=== PATIENT | male | born 1985 | race Caucasian/White ===

== ENCOUNTER 2017-10-28 10:31 | Inpatient (IN) | payer MEDICAID ==
[~2017-10-28] VITALS: Ht 170.2 cm; Wt 80.3 kg
[2017-10-28] MEDS ORDERED: LORazepam 2 MG/ML VIAL IM ONE (10:45)
[2017-10-28] MEDS ORDERED: DiphenhydrAMINE HCL 50 MG/ML VIAL IM ONE (10:45)
[2017-10-28] MEDS ORDERED: HALOPERIDOL LACTATE 5 MG/ML VIAL IM ONE (10:45)
[2017-10-28 11:30] LABS: BASOPHILS % (AUTO) 0.3 % (0.0-2.0); EOSINOPHILS % (AUTO) 0.3 % (1.0-6.0); HEMATOCRIT 38.6 % (41-53); HEMOGLOBIN 13.8 g/dL (13.5-17.5); LYMPHOCYTES # (AUTO) 1.7 K/uL (1.0-4.8); LYMPHOCYTES % (AUTO) 11.9 % (22.0-44.0); MEAN CORPUSCULAR HEMOGLOBIN 30.7 pg (26.0-34.0); MEAN CORPUSCULAR HGB CONC 35.8 G/dL (31.0-37.0); MEAN CORPUSCULAR VOLUME 86 fL (80-100); MONOCYTES # (AUTO) 0.8 K/uL (0.1-1.0); MONOCYTES % (AUTO) 5.3 % (2.0-9.0); NEUTROPHILS % (AUTO) 82.2 % (40.0-70.0); PLATELET COUNT (AUTO) 267 K/uL (150-450); RED CELL DISTRIBUTION WIDTH 13.2 % (11.5-14.5)
[2017-10-28 11:35] LABS: ANION GAP 12 mmol/L (8-16); CALCIUM, TOTAL 8.5 mg/dL (8.8-10.5); CARBON DIOXIDE 21 mmol/L (22-29); CHLORIDE 102 mmol/L (98-107); CREATININE 1.22 mg/dL (0.60-1.30); GLOMERULAR FILTR. RATE CALC > 60 mL/min (>60); GLUCOSE,RANDOM 110 mg/dL (70-110); POTASSIUM 3.1 mmol/L (3.5-5.1); SODIUM SERUM 135 mmol/L (136-145); UREA NITROGEN, BLOOD 13 mg/dL (7-18)
[2017-10-28 11:41] LABS: ALANINE AMINOTRANSFERASE 39 U/L (12-78); ALBUMIN 3.8 g/dL (3.4-5.0); ALKALINE PHOSPHATASE 56 U/L (46-116); ASPARTATE AMINOTRANSFERASE 22 U/L (15-37); BILIRUBIN,TOTAL 1.1 mg/dL (0.1-1.0); TOTAL PROTEIN, SERUM 7.4 g/dL (6.4-8.2)
[2017-10-28] MEDS ORDERED: POTASSIUM CHLORIDE 20 MEQ ER TABLET PO ONE (12:15)
[2017-10-28] MEDS ORDERED: ZOLPIDEM TARTRATE 10 MG TABLET PO PRN (14:00)
[2017-10-28 17:39] VITALS: BP 150/89
[2017-10-29 06:32] VITALS: BP 117/69
[2017-10-29 08:32] VITALS: BP 130/61
[2017-10-29 16:00] VITALS: BP 127/73
[2017-10-29] MEDS ORDERED: PETROLATUM,WHITE 71 GM JELLY TP PRN (20:30)
[2017-10-29] MEDS ORDERED: ONDANSETRON HCL 4 MG TABLET PO PRN (20:30)
[2017-10-29] MEDS ORDERED: LOPERAMIDE HCL 2 MG CAPSULE PO PRN (20:30)
[2017-10-29] MEDS ORDERED: DOCUSATE SODIUM 100 MG CAPSULE PO PRN (20:30)
[2017-10-29] MEDS ORDERED: ALBUTEROL SULFATE HFA 90 MCG/PUFF 8 GM INHALER IH PRN (20:30)
[2017-10-29] MEDS ORDERED: CloNIDine HCL 0.1 MG TABLET PO PRN (20:30)
[2017-10-29] MEDS ORDERED: IBUPROFEN 600 MG TABLET PO PRN (20:30)
[2017-10-29] MEDS ORDERED: BACITRACIN 28.4 GM OINTMENT TP PRN (20:30)
[2017-10-29] MEDS ORDERED: MAGNESIUM HYDROXIDE SUSPENSION 30 ML UDCUP PO PRN (20:30)
[2017-10-29] MEDS ORDERED: ACETAMINOPHEN 325 MG TABLET PO PRN (20:30)
[2017-10-29] MEDS ORDERED: MAG HYDROX/AL HYDROX/SIMETH ES 30 ML SUSPENSION UDCUP PO PRN (20:30)
[2017-10-29] MEDS ORDERED: BENZOCAINE/MENTHOL LOZENGE MM PRN (20:30)
[2017-10-30 00:24] VITALS: BP 128/78
[2017-10-30 08:26] VITALS: BP 141/90
[2017-10-30 08:47] LABS: BAND NEUTROPHILS % (MANUAL) 0 % (0-5)
[2017-10-30 08:57] LABS: HEMATOCRIT 38.5 % (41-53); HEMOGLOBIN 13.8 g/dL (13.5-17.5); MEAN CORPUSCULAR HGB CONC 35.8 G/dL (31.0-37.0); MEAN CORPUSCULAR VOLUME 87 fL (80-100); PLATELET COUNT (AUTO) 267 K/uL (150-450); RED BLOOD CELL COUNT(AUTO) 4.45 MIL/uL (4.50-5.90); RED CELL DISTRIBUTION WIDTH 13.1 % (11.5-14.5)
[2017-10-30 10:01] LABS: ANION GAP 8 mmol/L (8-16); CALCIUM, TOTAL 7.9 mg/dL (8.8-10.5); CARBON DIOXIDE 26 mmol/L (22-29); CHLORIDE 107 mmol/L (98-107); CHOL/HDL RATIO 4.9 (4.2-7.3); CHOLESTEROL 146 mg/dL (131-200); CREATININE 0.94 mg/dL (0.60-1.30); GLOMERULAR FILTR. RATE CALC > 60 mL/min (>60); GLUCOSE,RANDOM 135 mg/dL (70-110); HDL CHOLESTEROL 30 mg/dL (40-60); LDL CHOL (CALC.) 84 mg/dL (0-130); PHOSPHORUS 3.4 mg/dL (2.5-4.9); POTASSIUM 3.3 mmol/L (3.5-5.1); SODIUM SERUM 141 mmol/L (136-145); THYROID STIMULATING HORMONE 1.05 uIU/mL (0.36-3.74); TRIGLYCERIDES 162 mg/dL (15-150); UREA NITROGEN, BLOOD 8 mg/dL (7-18)
[2017-10-30 11:02] LABS: EOSINOPHILS % (MANUAL) 1 % (1-6); LYMPHOCYTES % (MANUAL) 31 % (22-44); MONOCYTES % (MANUAL) 2 % (2-9); SEGMENTED NEUTROPHILS % 66 % (40-70)
[2017-10-30] MEDS: OLANZapine 5 MG TABLET PO SCH ×2 (11:37→20:57)
[2017-10-30 16:00] VITALS: BP 114/65
[2017-10-31 00:04] VITALS: BP 130/90
[2017-10-31 08:09] VITALS: BP 129/67
[2017-10-31] MEDS: OLANZapine 5 MG TABLET PO SCH ×2 (08:56→20:30)
[2017-10-31 16:00] VITALS: BP 140/88
[2017-10-31] MEDS ORDERED: POTASSIUM CHLORIDE 20 MEQ ER TABLET PO ONE (17:00)
[2017-11-01 07:31] LABS: POTASSIUM 4.3 mmol/L (3.5-5.1)
[2017-11-01 08:12] LABS: HEMOGLOBIN A1C 6.3 % (4.5-6.2)
[2017-11-01 08:13] VITALS: BP 133/69
[2017-11-01] MEDS: OLANZapine 5 MG TABLET PO SCH ×2 (09:00→20:29)
[2017-11-01] MEDS ORDERED: GLUCAGON,HUMAN RECOMBINANT 1 MG VIAL IM PRN (12:15)
[2017-11-01] MEDS ORDERED: INSULIN LISPRO 100 UNITS/ML SQ PRN (12:15)
[2017-11-01 16:16] VITALS: BP 137/88
[2017-11-01] MEDS: MetFORMIN HCL 500 MG TABLET PO SCH (17:00)
[2017-11-02 02:00] VITALS: BP 124/82
[2017-11-02] MEDS: MetFORMIN HCL 500 MG TABLET PO SCH ×2 (06:24→16:27)
[2017-11-02] MEDS: OLANZapine 5 MG TABLET PO SCH ×2 (09:00→20:12)
[2017-11-02 09:22] VITALS: BP 146/79
[2017-11-02 16:00] VITALS: BP 136/86
[2017-11-03 00:51] VITALS: BP 106/66
[2017-11-03] MEDS: MetFORMIN HCL 500 MG TABLET PO SCH ×2 (06:32→17:07)
[2017-11-03 08:26] VITALS: BP 122/68
[2017-11-03] MEDS: CHOLECALCIFEROL (VIT D3) 1,000 UNITS TABLET PO SCH (08:45)
[2017-11-03] MEDS: OLANZapine 5 MG TABLET PO SCH ×2 (08:48→21:03)
[2017-11-03 11:38] LABS: GLUCOMETER DEV NAME(LOC) BV3N5; GLUCOSE,POINT OF CARE 113 MG/DL (70-110)
[2017-11-03 16:14] VITALS: BP 123/71
[2017-11-03] MEDS: HALOPERIDOL 5 MG TABLET PO PRN (17:07)
[2017-11-03] MEDS: LORazepam 2 MG TABLET PO PRN (17:07)
[2017-11-03 17:18] LABS: GLUCOMETER DEV NAME(LOC) BV3N5; GLUCOSE,POINT OF CARE 133 MG/DL (70-110)
[2017-11-04] MEDS: MetFORMIN HCL 500 MG TABLET PO SCH ×2 (06:33→17:16)
[2017-11-04 06:42] VITALS: BP 113/72
[2017-11-04 08:43] VITALS: BP 110/67
[2017-11-04] MEDS: CHOLECALCIFEROL (VIT D3) 1,000 UNITS TABLET PO SCH (10:01)
[2017-11-04] MEDS: LORazepam 2 MG TABLET PO PRN ×2 (10:01→21:42)
[2017-11-04 16:16] VITALS: BP 120/66
[2017-11-04 17:03] LABS: GLUCOMETER DEV NAME(LOC) BV3N5; GLUCOSE,POINT OF CARE 105 MG/DL (70-110)
[2017-11-04] MEDS: HALOPERIDOL 5 MG TABLET PO PRN (21:42)
[2017-11-04] MEDS: OLANZapine 5 MG TABLET PO SCH (21:42)
[2017-11-05 06:34] LABS: GLUCOMETER DEV NAME(LOC) BV3N5; GLUCOSE,POINT OF CARE 89 MG/DL (70-110)
[2017-11-05] MEDS: MetFORMIN HCL 500 MG TABLET PO SCH ×2 (06:53→16:33)
[2017-11-05 08:08] VITALS: BP 138/68
[2017-11-05] MEDS: OLANZapine 5 MG TABLET PO SCH ×2 (09:00→20:22)
[2017-11-05] MEDS: CHOLECALCIFEROL (VIT D3) 1,000 UNITS TABLET PO SCH (09:00)
[2017-11-05 11:53] LABS: GLUCOMETER DEV NAME(LOC) BV3N5; GLUCOSE,POINT OF CARE 123 MG/DL (70-110)
[2017-11-05 16:00] VITALS: BP 127/70
[2017-11-05] MEDS: LORazepam 2 MG TABLET PO PRN (16:33)
[2017-11-05 17:08] LABS: GLUCOMETER DEV NAME(LOC) BV3N5; GLUCOSE,POINT OF CARE 173 MG/DL (70-110)
[2017-11-06 01:22] VITALS: BP 137/82
[2017-11-06] MEDS: MetFORMIN HCL 500 MG TABLET PO SCH ×2 (06:16→17:00)
[2017-11-06 08:26] VITALS: BP 125/74
[2017-11-06] MEDS: OLANZapine 5 MG TABLET PO SCH ×2 (08:51→20:26)
[2017-11-06] MEDS: CHOLECALCIFEROL (VIT D3) 1,000 UNITS TABLET PO SCH (08:51)
[2017-11-06] MEDS: LORazepam 1 MG TABLET PO PRN (11:29)
[2017-11-06] MEDS: HALOPERIDOL 5 MG TABLET PO PRN (11:29)
[2017-11-06 11:48] LABS: GLUCOMETER DEV NAME(LOC) BV3N5; GLUCOSE,POINT OF CARE 122 MG/DL (70-110)
[2017-11-06 16:00] VITALS: BP 138/90
[2017-11-07 05:23] VITALS: BP 138/89
[2017-11-07 05:25] VITALS: BP 113/69
[2017-11-07] MEDS: MetFORMIN HCL 500 MG TABLET PO SCH ×2 (06:36→16:08)
[2017-11-07 08:24] VITALS: BP 126/72
[2017-11-07] MEDS: CHOLECALCIFEROL (VIT D3) 1,000 UNITS TABLET PO SCH ×3 (08:52→09:00)
[2017-11-07] MEDS: OLANZapine 5 MG TABLET PO SCH ×3 (08:53→20:13)
[2017-11-07 11:13] LABS: GLUCOMETER DEV NAME(LOC) BV3N5; GLUCOSE,POINT OF CARE 138 MG/DL (70-110)
[2017-11-07 16:10] VITALS: BP 124/78
[2017-11-08 04:37] VITALS: BP 127/76
[2017-11-08] MEDS: MetFORMIN HCL 500 MG TABLET PO SCH ×2 (06:30→16:22)
[2017-11-08 08:17] VITALS: BP 144/79
[2017-11-08] MEDS: CHOLECALCIFEROL (VIT D3) 1,000 UNITS TABLET PO SCH (08:55)
[2017-11-08] MEDS: OLANZapine 5 MG TABLET PO SCH ×2 (08:56→21:00)
[2017-11-08 16:25] VITALS: BP 144/87
[2017-11-09 04:06] VITALS: BP 129/88
[2017-11-09] MEDS: MetFORMIN HCL 500 MG TABLET PO SCH ×2 (06:40→16:47)
[2017-11-09 09:00] VITALS: BP 141/92
[2017-11-09] MEDS: CHOLECALCIFEROL (VIT D3) 1,000 UNITS TABLET PO SCH (09:00)
[2017-11-09] MEDS: OLANZapine 5 MG TABLET PO SCH (09:00)
[2017-11-09 16:00] VITALS: BP 129/77
[2017-11-10 02:44] VITALS: BP 152/81
[2017-11-10] MEDS: MetFORMIN HCL 500 MG TABLET PO SCH ×2 (06:35→16:38)
[2017-11-10 08:15] VITALS: BP 140/84
[2017-11-10] MEDS: CHOLECALCIFEROL (VIT D3) 1,000 UNITS TABLET PO SCH (09:00)
[2017-11-10] MEDS: PALIPERIDONE 3 MG ER TABLET PO SCH (09:00)
[2017-11-10 11:50] LABS: GLUCOMETER DEV NAME(LOC) BV3N5; GLUCOSE,POINT OF CARE 164 MG/DL (70-110)
[2017-11-10 16:00] VITALS: BP 128/68
[2017-11-10] MEDS: LORazepam 1 MG TABLET PO PRN (16:38)
[2017-11-10] MEDS: HALOPERIDOL 5 MG TABLET PO PRN (16:38)
[2017-11-10 16:54] LABS: GLUCOMETER DEV NAME(LOC) BV3N5; GLUCOSE,POINT OF CARE 93 MG/DL (70-110)
[2017-11-10 21:24] LABS: GLUCOMETER DEV NAME(LOC) BV3N5; GLUCOSE,POINT OF CARE 113 MG/DL (70-110)
[2017-11-11 05:11] VITALS: BP 145/98
[2017-11-11] MEDS: MetFORMIN HCL 500 MG TABLET PO SCH (06:37)
[2017-11-11 08:22] VITALS: BP 135/66
[2017-11-11] MEDS: CHOLECALCIFEROL (VIT D3) 1,000 UNITS TABLET PO SCH (09:05)
[2017-11-11] MEDS: HALOPERIDOL 5 MG TABLET PO PRN (09:05)
[2017-11-11] MEDS: LORazepam 1 MG TABLET PO PRN (09:05)
[2017-11-11] MEDS: PALIPERIDONE 3 MG ER TABLET PO SCH (09:05)
[2017-11-11 11:41] LABS: GLUCOMETER DEV NAME(LOC) BV3N5; GLUCOSE,POINT OF CARE 89 MG/DL (70-110)
[2017-11-11] MEDS ORDERED: METF500T6 PO (14:45)
[2017-11-11] MEDS ORDERED: VITAD1000 PO (14:45)
[2017-11-11] MEDS ORDERED: PALI3 PO (14:45)
== END 2017-11-11 15:55 | disposition home or self-care (01) | DRG 751 ==
LOC: EMS 10:32 → B3A 15:19
PROVIDERS: ADMIT Psychiatry & Neurology Psychiatry; ATTEND Psychiatry & Neurology Psychiatry
DX: F29 Unspecified psychosis not due to a substance or known physiological condition (principal); E87.1 Hypo-osmolality and hyponatremia; E83.51 Hypocalcemia; Z91.14 Patient's other noncompliance with medication regimen; R73.9 Hyperglycemia, unspecified; D72.829 Elevated white blood cell count, unspecified; E87.6 Hypokalemia; F41.9 Anxiety disorder, unspecified; G47.00 Insomnia, unspecified; Z79.899 Other long term (current) drug therapy
CPT/HCPCS: 82306; 83036; 83735; 84100; 84132; 84443; 85007; 96372; 99285; G0480; J1200; J1630; J2060

== ENCOUNTER 2018-02-22 17:04 | Inpatient (IN) | payer MEDICAID ==
[~2018-02-22] VITALS: Ht 170.2 cm; Wt 87.7 kg
[~2018-02-22 17:04] MED LIST: METF-960 PO; PALI3 PO; VITAD1000 PO
[2018-02-22] MEDS ORDERED: HALOPERIDOL 5 MG TABLET PO ONE (20:30)
[2018-02-23 00:14] LABS: AMPHET/METH SCREEN,URINE NEGATIVE (NEGATIVE); BARBITURATE SCREEN, URINE NEGATIVE (NEGATIVE); BENZODIAZEPINES SCREEN,URINE NEGATIVE (NEGATIVE); CANNABINOID SCREEN,URINE NEGATIVE (NEGATIVE); COCAINE SCREEN,URINE NEGATIVE (NEGATIVE); METHADONE SCREEN, URINE NEGATIVE (NEGATIVE); OPIATE SCREEN,URINE NEGATIVE (NEGATIVE)
[2018-02-23 00:19] LABS: PHENCYCLIDINE SCREEN,URINE NEGATIVE (NEGATIVE)
[2018-02-23 02:33] LABS: BASOPHILS % (AUTO) 0.7 % (0.0-2.0); EOSINOPHILS % (AUTO) 0.7 % (1.0-6.0); HEMATOCRIT 39.7 % (41-53); HEMOGLOBIN 13.9 g/dL (13.5-17.5); LYMPHOCYTES # (AUTO) 3.2 K/uL (1.0-4.8); MEAN CORPUSCULAR HEMOGLOBIN 30.2 pg (26.0-34.0); MEAN CORPUSCULAR VOLUME 86 fL (80-100); MONOCYTES # (AUTO) 0.9 K/uL (0.1-1.0); MONOCYTES % (AUTO) 8.1 % (2.0-9.0); NEUTROPHILS # (AUTO) 6.4 K/uL (1.8-7.7); NEUTROPHILS % (AUTO) 60.5 % (40.0-70.0); PLATELET COUNT (AUTO) 296 K/uL (150-450); RED BLOOD CELL COUNT(AUTO) 4.61 MIL/uL (4.50-5.90); RED CELL DISTRIBUTION WIDTH 13.2 % (11.5-14.5)
[2018-02-23 02:42] LABS: ANION GAP 12 mmol/L (8-16); CALCIUM, TOTAL 8.9 mg/dL (8.8-10.5); CARBON DIOXIDE 25 mmol/L (22-29); CHLORIDE 103 mmol/L (98-107); CREATININE 1.11 mg/dL (0.60-1.30); GLOMERULAR FILTR. RATE CALC > 60 mL/min (>60); GLUCOSE,RANDOM 133 mg/dL (70-110); POTASSIUM 3.3 mmol/L (3.5-5.1); SODIUM SERUM 140 mmol/L (136-145); UREA NITROGEN, BLOOD 10 mg/dL (7-18)
[2018-02-23 02:48] LABS: ALANINE AMINOTRANSFERASE 45 U/L (12-78); ALBUMIN 3.9 g/dL (3.4-5.0); ALKALINE PHOSPHATASE 70 U/L (46-116); ASPARTATE AMINOTRANSFERASE 23 U/L (15-37); BILIRUBIN,TOTAL 0.7 mg/dL (0.1-1.0); TOTAL PROTEIN, SERUM 7.9 g/dL (6.4-8.2)
[2018-02-23] MEDS ORDERED: ZOLPIDEM TARTRATE 10 MG TABLET PO PRN (03:45)
[2018-02-23] MEDS ORDERED: POTASSIUM CHLORIDE 20 MEQ ER TABLET PO ONE (03:45)
[2018-02-23] MEDS ORDERED: HALOPERIDOL 5 MG TABLET PO PRN (03:45)
[2018-02-23] MEDS ORDERED: LORazepam 2 MG TABLET PO PRN (03:45)
[2018-02-23 05:23] VITALS: BP 115/87
[2018-02-23] MEDS ORDERED: DOCUSATE SODIUM 100 MG CAPSULE PO PRN (06:30)
[2018-02-23] MEDS ORDERED: PETROLATUM,WHITE 71 GM JELLY TP PRN (06:30)
[2018-02-23] MEDS ORDERED: IBUPROFEN 400 MG TABLET PO PRN (06:30)
[2018-02-23] MEDS ORDERED: MAGNESIUM HYDROXIDE SUSPENSION 30 ML UDCUP PO PRN (06:30)
[2018-02-23] MEDS ORDERED: NICOTINE 14 MG/24 HOUR PATCH TD PRN (06:30)
[2018-02-23] MEDS ORDERED: ALBUTEROL SULFATE HFA 90 MCG/PUFF 8 GM INHALER IH PRN (06:30)
[2018-02-23] MEDS ORDERED: MAG HYDROX/AL HYDROX/SIMETH ES 30 ML SUSPENSION UDCUP PO PRN (06:30)
[2018-02-23] MEDS ORDERED: GuaiFENesin/D-METHORPHAN [SUGAR-FREE] 200-20MG/10 ML SYRUP UDCUP PO PRN (06:30)
[2018-02-23] MEDS ORDERED: ACETAMINOPHEN 325 MG TABLET PO PRN (06:30)
[2018-02-23] MEDS ORDERED: ONDANSETRON HCL 4 MG TABLET PO PRN (06:30)
[2018-02-23] MEDS ORDERED: CloNIDine HCL 0.1 MG TABLET PO PRN (06:30)
[2018-02-23] MEDS ORDERED: LOPERAMIDE HCL 2 MG CAPSULE PO PRN (06:30)
[2018-02-23 08:50] VITALS: BP 136/70
[2018-02-23] MEDS ORDERED: PALIPERIDONE 6 MG ER TABLET PO SCH (21:00)
[2018-02-24 06:32] LABS: HEMOGLOBIN A1C 5.8 % (4.5-6.2)
[2018-02-24 06:51] LABS: POTASSIUM 3.7 mmol/L (3.5-5.1); THYROID STIMULATING HORMONE 0.98 uIU/mL (0.36-3.74)
[2018-02-24 08:16] VITALS: BP 148/68
[2018-02-24 18:49] VITALS: BP 134/97
[2018-02-24] MEDS: PALIPERIDONE 3 MG ER TABLET PO SCH (21:00)
[2018-02-25 08:27] VITALS: BP 118/84
[2018-02-25 16:43] VITALS: BP 117/75
[2018-02-25] MEDS: PALIPERIDONE 3 MG ER TABLET PO SCH (20:26)
[2018-02-26 09:08] VITALS: BP 120/74
[2018-02-26 18:51] VITALS: BP 123/77
[2018-02-26] MEDS: PALIPERIDONE 3 MG ER TABLET PO SCH (20:12)
[2018-02-27 08:25] VITALS: BP 139/80
[2018-02-27] MEDS ORDERED: DIVALPROEX SODIUM 500 MG DR TABLET PO SCH (17:00)
[2018-02-27] MEDS ORDERED: DIVALPROEX SODIUM 500 MG ER TABLET PO SCH (17:00)
[2018-02-27] MEDS: DIVALPROEX SODIUM 500 MG ER TABLET PO SCH (17:39)
[2018-02-27 19:07] VITALS: BP 119/79
[2018-02-27] MEDS: PALIPERIDONE 3 MG ER TABLET PO SCH ×3 (20:44→21:58)
[2018-02-28 06:33] LABS: BASOPHILS % (AUTO) 0.4 % (0.0-2.0); EOSINOPHILS % (AUTO) 0.7 % (1.0-6.0); HEMATOCRIT 45.5 % (41-53); HEMOGLOBIN 16.1 g/dL (13.5-17.5); LYMPHOCYTES # (AUTO) 2.9 K/uL (1.0-4.8); LYMPHOCYTES % (AUTO) 25.8 % (22.0-44.0); MEAN CORPUSCULAR HEMOGLOBIN 30.4 pg (26.0-34.0); MEAN CORPUSCULAR HGB CONC 35.4 G/dL (31.0-37.0); MEAN CORPUSCULAR VOLUME 86 fL (80-100); MONOCYTES # (AUTO) 0.6 K/uL (0.1-1.0); MONOCYTES % (AUTO) 5.3 % (2.0-9.0); NEUTROPHILS # (AUTO) 7.7 K/uL (1.8-7.7); NEUTROPHILS % (AUTO) 67.8 % (40.0-70.0); PLATELET COUNT (AUTO) 346 K/uL (150-450); RED CELL DISTRIBUTION WIDTH 13.1 % (11.5-14.5)
[2018-02-28 06:45] LABS: ALANINE AMINOTRANSFERASE 82 U/L (12-78); ALBUMIN 3.9 g/dL (3.4-5.0); ALKALINE PHOSPHATASE 74 U/L (46-116); ANION GAP 9 mmol/L (8-16); ASPARTATE AMINOTRANSFERASE 22 U/L (15-37); BILIRUBIN,TOTAL 0.4 mg/dL (0.1-1.0); CALCIUM, TOTAL 9.5 mg/dL (8.8-10.5); CARBON DIOXIDE 26 mmol/L (22-29); CHLORIDE 100 mmol/L (98-107); CREATININE 0.93 mg/dL (0.60-1.30); GLOMERULAR FILTR. RATE CALC > 60 mL/min (>60); GLUCOSE,RANDOM 130 mg/dL (70-110); SODIUM SERUM 135 mmol/L (136-145); TOTAL PROTEIN, SERUM 8.4 g/dL (6.4-8.2); UREA NITROGEN, BLOOD 10 mg/dL (7-18)
[2018-02-28 08:14] VITALS: BP 153/92
[2018-02-28] MEDS: DIVALPROEX SODIUM 500 MG ER TABLET PO SCH ×2 (08:49→16:30)
[2018-02-28 16:49] VITALS: BP 143/78
[2018-02-28] MEDS ORDERED: PALIPERIDONE 3 MG ER TABLET PO SCH (21:00)
[2018-03-01 08:51] VITALS: BP 136/105
[2018-03-01] MEDS: DIVALPROEX SODIUM 500 MG ER TABLET PO SCH (09:00)
[2018-03-01 18:03] VITALS: BP 142/80
[2018-03-01] MEDS: PALIPERIDONE 6 MG ER TABLET PO SCH (20:36)
[2018-03-02 08:00] VITALS: BP 146/94
[2018-03-02 08:05] VITALS: BP 146/94
[2018-03-02] MEDS: VALPROIC ACID 250 MG/5 ML SYRUP UDCUP PO SCH (16:30)
[2018-03-02 16:52] VITALS: BP 130/74
[2018-03-02] MEDS: PALIPERIDONE 6 MG ER TABLET PO SCH (20:40)
[2018-03-03] MEDS: VALPROIC ACID 250 MG/5 ML SYRUP UDCUP PO SCH ×2 (08:21→17:29)
[2018-03-03 12:49] VITALS: BP 139/82
[2018-03-03 19:11] VITALS: BP 142/85
[2018-03-03] MEDS: PALIPERIDONE 6 MG ER TABLET PO SCH (21:55)
[2018-03-04 08:30] VITALS: BP 136/73
[2018-03-04] MEDS: VALPROIC ACID 250 MG/5 ML SYRUP UDCUP PO SCH ×3 (09:33→17:04)
[2018-03-04 16:52] VITALS: BP 142/73
[2018-03-04] MEDS: PALIPERIDONE 6 MG ER TABLET PO SCH (20:15)
[2018-03-05 06:58] LABS: BASOPHILS % (AUTO) 0.6 % (0.0-2.0); EOSINOPHILS % (AUTO) 2.5 % (1.0-6.0); HEMATOCRIT 41.6 % (41-53); HEMOGLOBIN 14.7 g/dL (13.5-17.5); LYMPHOCYTES % (AUTO) 22.7 % (22.0-44.0); MEAN CORPUSCULAR HEMOGLOBIN 30.5 pg (26.0-34.0); MEAN CORPUSCULAR HGB CONC 35.3 G/dL (31.0-37.0); MEAN CORPUSCULAR VOLUME 86 fL (80-100); MONOCYTES # (AUTO) 0.4 K/uL (0.1-1.0); MONOCYTES % (AUTO) 4.9 % (2.0-9.0); NEUTROPHILS # (AUTO) 6.2 K/uL (1.8-7.7); NEUTROPHILS % (AUTO) 69.3 % (40.0-70.0); PLATELET COUNT (AUTO) 294 K/uL (150-450); RED BLOOD CELL COUNT(AUTO) 4.81 MIL/uL (4.50-5.90); RED CELL DISTRIBUTION WIDTH 13.4 % (11.5-14.5)
[2018-03-05 07:24] LABS: ALANINE AMINOTRANSFERASE 71 U/L (12-78); ALBUMIN 3.6 g/dL (3.4-5.0); ALKALINE PHOSPHATASE 68 U/L (46-116); ANION GAP 7 mmol/L (8-16); ASPARTATE AMINOTRANSFERASE 22 U/L (15-37); BILIRUBIN,TOTAL 0.3 mg/dL (0.1-1.0); CALCIUM, TOTAL 8.9 mg/dL (8.8-10.5); CARBON DIOXIDE 28 mmol/L (22-29); CHLORIDE 100 mmol/L (98-107); CREATININE 1.12 mg/dL (0.60-1.30); GLOMERULAR FILTR. RATE CALC > 60 mL/min (>60); GLUCOSE,RANDOM 163 mg/dL (70-110); POTASSIUM 3.6 mmol/L (3.5-5.1); SODIUM SERUM 135 mmol/L (136-145); TOTAL PROTEIN, SERUM 7.4 g/dL (6.4-8.2); UREA NITROGEN, BLOOD 11 mg/dL (7-18); VALPROIC ACID 35 mcg/mL (50-100)
[2018-03-05 08:00] VITALS: BP 135/84
[2018-03-05] MEDS: VALPROIC ACID 250 MG/5 ML SYRUP UDCUP PO SCH (08:16)
[2018-03-05 16:00] VITALS: BP 143/91
[2018-03-05] MEDS: LITHIUM CARBONATE 300 MG CAPSULE PO SCH (17:00)
[2018-03-05] MEDS: PALIPERIDONE 6 MG ER TABLET PO SCH (20:51)
[2018-03-06 08:05] VITALS: BP 144/86
[2018-03-06] MEDS: LITHIUM CARBONATE 300 MG CAPSULE PO SCH ×2 (09:00→17:00)
[2018-03-06 16:48] VITALS: BP 150/95
[2018-03-06] MEDS: PALIPERIDONE 6 MG ER TABLET PO SCH (20:28)
[2018-03-07 08:30] VITALS: BP 138/86
[2018-03-07] MEDS: LITHIUM CARBONATE 300 MG CAPSULE PO SCH ×2 (09:00→16:20)
[2018-03-07 16:36] VITALS: BP 142/83
[2018-03-07] MEDS: PALIPERIDONE 6 MG ER TABLET PO SCH (20:22)
[2018-03-08 06:34] LABS: BASOPHILS % (AUTO) 0.5 % (0.0-2.0); EOSINOPHILS % (AUTO) 3.2 % (1.0-6.0); HEMATOCRIT 41.7 % (41-53); HEMOGLOBIN 14.5 g/dL (13.5-17.5); LYMPHOCYTES # (AUTO) 2.2 K/uL (1.0-4.8); LYMPHOCYTES % (AUTO) 20.4 % (22.0-44.0); MEAN CORPUSCULAR HEMOGLOBIN 30.4 pg (26.0-34.0); MEAN CORPUSCULAR HGB CONC 34.8 G/dL (31.0-37.0); MEAN CORPUSCULAR VOLUME 87 fL (80-100); MONOCYTES % (AUTO) 9.3 % (2.0-9.0); NEUTROPHILS # (AUTO) 7.2 K/uL (1.8-7.7); NEUTROPHILS % (AUTO) 66.6 % (40.0-70.0); PLATELET COUNT (AUTO) 275 K/uL (150-450); RED BLOOD CELL COUNT(AUTO) 4.77 MIL/uL (4.50-5.90); RED CELL DISTRIBUTION WIDTH 13.5 % (11.5-14.5)
[2018-03-08 06:51] LABS: ALANINE AMINOTRANSFERASE 55 U/L (12-78); ALBUMIN 3.3 g/dL (3.4-5.0); ALKALINE PHOSPHATASE 62 U/L (46-116); ANION GAP 3 mmol/L (8-16); ASPARTATE AMINOTRANSFERASE 20 U/L (15-37); BILIRUBIN,TOTAL 0.3 mg/dL (0.1-1.0); CALCIUM, TOTAL 8.4 mg/dL (8.8-10.5); CARBON DIOXIDE 31 mmol/L (22-29); CHLORIDE 102 mmol/L (98-107); CREATININE 0.98 mg/dL (0.60-1.30); GLOMERULAR FILTR. RATE CALC > 60 mL/min (>60); GLUCOSE,RANDOM 107 mg/dL (70-110); POTASSIUM 3.8 mmol/L (3.5-5.1); SODIUM SERUM 136 mmol/L (136-145); THYROID STIMULATING HORMONE 1.59 uIU/mL (0.36-3.74); TOTAL PROTEIN, SERUM 6.9 g/dL (6.4-8.2); UREA NITROGEN, BLOOD 12 mg/dL (7-18)
[2018-03-08 06:54] LABS: LITHIUM < 0.20 mmol/L (0.60-1.20)
[2018-03-08 08:54] VITALS: BP 130/87
[2018-03-08] MEDS: LITHIUM CARBONATE 300 MG CAPSULE PO SCH ×2 (08:54→17:00)
[2018-03-08 16:46] VITALS: BP 136/78
[2018-03-08] MEDS: PALIPERIDONE 6 MG ER TABLET PO SCH (21:00)
[2018-03-09] MEDS: LITHIUM CARBONATE 300 MG CAPSULE PO SCH ×2 (09:00→16:28)
[2018-03-09 09:22] VITALS: BP 111/82
[2018-03-09] MEDS ORDERED: PALIPERIDONE PALMITATE 234 MG/1.5 ML SYRINGE IM ONE (09:30)
[2018-03-09 16:00] VITALS: BP 117/79
[2018-03-09] MEDS: PALIPERIDONE 6 MG ER TABLET PO SCH (20:31)
[2018-03-10 08:00] VITALS: BP 143/83
[2018-03-10] MEDS: LITHIUM CARBONATE 300 MG CAPSULE PO SCH ×2 (09:00→16:23)
[2018-03-10 16:00] VITALS: BP 146/74
[2018-03-10] MEDS: PALIPERIDONE 6 MG ER TABLET PO SCH (20:32)
[2018-03-11 06:52] VITALS: BP 132/73
[2018-03-11] MEDS: LITHIUM CARBONATE 300 MG CAPSULE PO SCH (08:39)
[2018-03-11 10:00] VITALS: BP 143/89
[2018-03-11 16:30] VITALS: BP 98/64
[2018-03-11] MEDS: PALIPERIDONE 6 MG ER TABLET PO SCH (20:15)
[2018-03-12 08:05] VITALS: BP 140/86
[2018-03-12 20:20] VITALS: BP 126/81
[2018-03-12] MEDS: PALIPERIDONE 6 MG ER TABLET PO SCH (20:55)
[2018-03-13] MEDS: PALIPERIDONE 6 MG ER TABLET PO SCH (21:02)
[2018-03-14 08:55] VITALS: BP 162/88
[2018-03-14 19:45] VITALS: BP 146/90
[2018-03-14] MEDS: PALIPERIDONE 6 MG ER TABLET PO SCH (20:30)
[2018-03-15] MEDS ORDERED: PALI6 PO (12:26)
[2018-03-15 14:12] VITALS: BP 125/74
== END 2018-03-15 18:18 | disposition home or self-care (01) | DRG 750 ==
LOC: EMS 17:05 → 3EC 02-23 04:37 → 3EI 03-10 20:31
PROVIDERS: ADMIT Psychiatry & Neurology Psychiatry; ATTEND Psychiatry & Neurology Psychiatry
DX: F25.0 Schizoaffective disorder, bipolar type (principal); Z59.0 Homelessness; D72.829 Elevated white blood cell count, unspecified; E87.6 Hypokalemia; G47.00 Insomnia, unspecified; F41.9 Anxiety disorder, unspecified; Z91.19 Patient's noncompliance with other medical treatment and regimen
CPT/HCPCS: 83036; 84132; 84443; G0480

== ENCOUNTER 2018-03-20 17:35 | Inpatient (IN) | payer MEDICAID, OTHER ==
[~2018-03-20] VITALS: Ht 170.2 cm; Wt 85.8 kg
[~2018-03-20 17:35] MED LIST changes: -METF-960 PO; -PALI3 PO; +PALI6 PO; -VITAD1000 PO
[2018-03-20 18:32] LABS: BASOPHILS % (AUTO) 0.4 % (0.0-2.0); EOSINOPHILS % (AUTO) 0.9 % (1.0-6.0); HEMATOCRIT 36.5 % (41-53); HEMOGLOBIN 12.7 g/dL (13.5-17.5); LYMPHOCYTES % (AUTO) 22.2 % (22.0-44.0); MEAN CORPUSCULAR HEMOGLOBIN 30.3 pg (26.0-34.0); MEAN CORPUSCULAR HGB CONC 34.7 G/dL (31.0-37.0); MEAN CORPUSCULAR VOLUME 87 fL (80-100); MONOCYTES # (AUTO) 0.8 K/uL (0.1-1.0); MONOCYTES % (AUTO) 8.6 % (2.0-9.0); NEUTROPHILS % (AUTO) 67.9 % (40.0-70.0); PLATELET COUNT (AUTO) 277 K/uL (150-450); RED BLOOD CELL COUNT(AUTO) 4.19 MIL/uL (4.50-5.90); RED CELL DISTRIBUTION WIDTH 13.5 % (11.5-14.5)
[2018-03-20 18:39] LABS: ANION GAP 9 mmol/L (8-16); CALCIUM, TOTAL 8.1 mg/dL (8.8-10.5); CARBON DIOXIDE 25 mmol/L (22-29); CHLORIDE 105 mmol/L (98-107); CREATININE 0.88 mg/dL (0.60-1.30); GLOMERULAR FILTR. RATE CALC > 60 mL/min (>60); GLUCOSE,RANDOM 100 mg/dL (70-110); POTASSIUM 3.2 mmol/L (3.5-5.1); SODIUM SERUM 139 mmol/L (136-145); UREA NITROGEN, BLOOD 10 mg/dL (7-18)
[2018-03-20 18:45] LABS: ALANINE AMINOTRANSFERASE 47 U/L (12-78); ALBUMIN 3.5 g/dL (3.4-5.0); ALKALINE PHOSPHATASE 57 U/L (46-116); ASPARTATE AMINOTRANSFERASE 23 U/L (15-37); BILIRUBIN,TOTAL 0.7 mg/dL (0.1-1.0); TOTAL PROTEIN, SERUM 6.9 g/dL (6.4-8.2)
[2018-03-20] MEDS ORDERED: DiphenhydrAMINE HCL 50 MG/ML VIAL IM ONE (19:30)
[2018-03-20] MEDS ORDERED: LORazepam 2 MG/ML VIAL IM ONE (19:30)
[2018-03-20] MEDS ORDERED: HALOPERIDOL LACTATE 5 MG/ML VIAL IM ONE (19:30)
[2018-03-20] MEDS ORDERED: ZOLPIDEM TARTRATE 10 MG TABLET PO PRN (20:00)
[2018-03-21] MEDS ORDERED: POTASSIUM CHLORIDE 20 MEQ ER TABLET PO ONE ×2 (02:00→18:45)
[2018-03-21 06:58] LABS: AMPHET/METH SCREEN,URINE NEGATIVE (NEGATIVE); BARBITURATE SCREEN, URINE NEGATIVE (NEGATIVE); BENZODIAZEPINES SCREEN,URINE POSITIVE (NEGATIVE); CANNABINOID SCREEN,URINE NEGATIVE (NEGATIVE); COCAINE SCREEN,URINE NEGATIVE (NEGATIVE); METHADONE SCREEN, URINE NEGATIVE (NEGATIVE); OPIATE SCREEN,URINE NEGATIVE (NEGATIVE)
[2018-03-21 07:02] LABS: PHENCYCLIDINE SCREEN,URINE NEGATIVE (NEGATIVE)
[2018-03-21 16:55] VITALS: BP 140/92
[2018-03-21] MEDS: LORazepam 2 MG TABLET PO PRN (16:55)
[2018-03-21] MEDS: HALOPERIDOL 5 MG TABLET PO PRN (16:55)
[2018-03-21] MEDS ORDERED: NICOTINE 14 MG/24 HOUR PATCH TD PRN (18:45)
[2018-03-21] MEDS ORDERED: PETROLATUM,WHITE 71 GM JELLY TP PRN (18:45)
[2018-03-21] MEDS ORDERED: IBUPROFEN 400 MG TABLET PO PRN (18:45)
[2018-03-21] MEDS ORDERED: CloNIDine HCL 0.1 MG TABLET PO PRN (18:45)
[2018-03-21] MEDS ORDERED: DOCUSATE SODIUM 100 MG CAPSULE PO PRN (18:45)
[2018-03-21] MEDS ORDERED: MAGNESIUM HYDROXIDE SUSPENSION 30 ML UDCUP PO PRN (18:45)
[2018-03-21] MEDS ORDERED: ACETAMINOPHEN 325 MG TABLET PO PRN (18:45)
[2018-03-21] MEDS ORDERED: GuaiFENesin/D-METHORPHAN [SUGAR-FREE] 200-20MG/10 ML SYRUP UDCUP PO PRN (18:45)
[2018-03-21] MEDS ORDERED: ALBUTEROL SULFATE HFA 90 MCG/PUFF 8 GM INHALER IH PRN (18:45)
[2018-03-21] MEDS ORDERED: ONDANSETRON HCL 4 MG TABLET PO PRN (18:45)
[2018-03-21] MEDS ORDERED: MAG HYDROX/AL HYDROX/SIMETH ES 30 ML SUSPENSION UDCUP PO PRN (18:45)
[2018-03-21] MEDS ORDERED: LOPERAMIDE HCL 2 MG CAPSULE PO PRN (18:45)
[2018-03-21] MEDS: BACITRACIN 28.4 GM OINTMENT TP SCH (20:29)
[2018-03-22 06:13] LABS: BASOPHILS % (AUTO) 0.4 % (0.0-2.0); EOSINOPHILS % (AUTO) 3.3 % (1.0-6.0); HEMATOCRIT 40.6 % (41-53); HEMOGLOBIN 13.9 g/dL (13.5-17.5); LYMPHOCYTES # (AUTO) 2.3 K/uL (1.0-4.8); LYMPHOCYTES % (AUTO) 33.4 % (22.0-44.0); MEAN CORPUSCULAR HEMOGLOBIN 30.5 pg (26.0-34.0); MEAN CORPUSCULAR HGB CONC 34.2 G/dL (31.0-37.0); MEAN CORPUSCULAR VOLUME 89 fL (80-100); MONOCYTES # (AUTO) 0.6 K/uL (0.1-1.0); MONOCYTES % (AUTO) 8.4 % (2.0-9.0); NEUTROPHILS # (AUTO) 3.7 K/uL (1.8-7.7); NEUTROPHILS % (AUTO) 54.5 % (40.0-70.0); PLATELET COUNT (AUTO) 277 K/uL (150-450); RED BLOOD CELL COUNT(AUTO) 4.56 MIL/uL (4.50-5.90); RED CELL DISTRIBUTION WIDTH 13.7 % (11.5-14.5)
[2018-03-22 06:44] LABS: CHOL/HDL RATIO 4.5 (4.2-7.3); POTASSIUM 3.7 mmol/L (3.5-5.1); THYROID STIMULATING HORMONE 0.78 uIU/mL (0.36-3.74)
[2018-03-22 08:46] VITALS: BP 140/84
[2018-03-22] MEDS: BACITRACIN 28.4 GM OINTMENT TP SCH ×2 (09:00→16:05)
[2018-03-22] MEDS: LORazepam 2 MG TABLET PO PRN (16:08)
[2018-03-22] MEDS: HALOPERIDOL 5 MG TABLET PO PRN (16:08)
[2018-03-22 16:56] VITALS: BP 143/80
[2018-03-22] MEDS: PALIPERIDONE 6 MG ER TABLET PO SCH (20:20)
[2018-03-23 08:22] VITALS: BP 145/108
[2018-03-23] MEDS: BACITRACIN 28.4 GM OINTMENT TP SCH ×2 (09:00→15:36)
[2018-03-23] MEDS: HALOPERIDOL 5 MG TABLET PO PRN (09:57)
[2018-03-23] MEDS: LORazepam 2 MG TABLET PO PRN (09:57)
[2018-03-23 16:52] VITALS: BP 133/89
[2018-03-23] MEDS: PALIPERIDONE 6 MG ER TABLET PO SCH (20:08)
[2018-03-24 08:09] VITALS: BP 132/88
[2018-03-24] MEDS: BACITRACIN 28.4 GM OINTMENT TP SCH ×2 (09:38→16:52)
[2018-03-24] MEDS: LORazepam 2 MG TABLET PO PRN (15:49)
[2018-03-24] MEDS: HALOPERIDOL 5 MG TABLET PO PRN (15:50)
[2018-03-24 16:00] VITALS: BP 114/77
[2018-03-24] MEDS: PALIPERIDONE 6 MG ER TABLET PO SCH (22:00)
[2018-03-25 08:08] VITALS: BP 140/93
[2018-03-25] MEDS ORDERED: PALIPERIDONE PALMITATE 156 MG/ML SYRINGE IM SCH (09:00)
[2018-03-25] MEDS: BACITRACIN 28.4 GM OINTMENT TP SCH ×2 (09:21→16:53)
[2018-03-25 16:16] VITALS: BP 145/80
[2018-03-25] MEDS: PALIPERIDONE 6 MG ER TABLET PO SCH (20:45)
[2018-03-26 08:00] VITALS: BP 124/72
[2018-03-26] MEDS: BACITRACIN 28.4 GM OINTMENT TP SCH ×2 (09:00→16:40)
[2018-03-26] MEDS: LORazepam 2 MG TABLET PO PRN (16:10)
[2018-03-26] MEDS: HALOPERIDOL 5 MG TABLET PO PRN (16:10)
[2018-03-26 16:52] VITALS: BP 120/67
[2018-03-26] MEDS: PALIPERIDONE 6 MG ER TABLET PO SCH (20:47)
[2018-03-27 08:57] VITALS: BP 145/96
[2018-03-27] MEDS: BACITRACIN 28.4 GM OINTMENT TP SCH (09:00)
[2018-03-27] MEDS ORDERED: PALI156D IM (12:37)
[2018-03-27] MEDS ORDERED: PALI6 PO (13:08)
== END 2018-03-27 14:25 | disposition home or self-care (01) | DRG 750 ==
LOC: EMS 17:36 → 3EC 03-21 16:03
PROVIDERS: ADMIT Psychiatry & Neurology Child & Adolescent Psychiatry; ATTEND Psychiatry & Neurology Psychiatry
DX: F25.0 Schizoaffective disorder, bipolar type (principal); E83.51 Hypocalcemia; F41.9 Anxiety disorder, unspecified; E87.6 Hypokalemia; Z78.1 Physical restraint status; Z59.0 Homelessness; Z91.19 Patient's noncompliance with other medical treatment and regimen; Z79.899 Other long term (current) drug therapy
CPT/HCPCS: 82310; 83036; 84132; 84443; 87081; 96372; G0480; J1200; J1630; J2060